=== PATIENT | female | born 1960 | race Caucasian/White ===

== ENCOUNTER 2016-04-27 08:17 | Outpatient (CLI) | payer OTHER | END 2016-04-27 08:18 | disposition home or self-care (01) | DX: R93.5 Abnormal findings on diagnostic imaging of other abdominal regions, including retroperitoneum (principal); Z98.890 Other specified postprocedural states ==

== ENCOUNTER 2016-05-06 16:38 | Outpatient (CLI) | payer OTHER ==
[2016-05-06] MEDS ORDERED: IOPAMIDOL-300 100 ML VIAL IVP ONE (18:07)
== END 2016-05-06 16:39 | disposition home or self-care (01) ==
DX: M77.8 Other enthesopathies, not elsewhere classified (principal)
CPT/HCPCS: 74177; Q9967

== ENCOUNTER 2016-07-05 10:00 | Outpatient (CLI) | payer OTHER | END 2016-07-05 10:01 | disposition home or self-care (01) | DX: Z12.31 Encounter for screening mammogram for malignant neoplasm of breast (principal) ==

== ENCOUNTER 2016-11-10 08:13 | Outpatient (CLI) | payer OTHER ==
[2016-11-10 13:09] LABS: BASOPHILS # (AUTO) 0.1 10^3/uL (0.0-0.1); BASOPHILS % (AUTO) 0.8 %; EOSINOPHILS # (AUTO) 0.1 10^3/uL (0.0-0.7); EOSINOPHILS % (AUTO) 1.8 %; HCT - HEMATOCRIT 40.9 % (37.0-47.0); HGB - HEMOGLOBIN 13.7 g/dL (12.0-16.0); LYMPHOCYTES # (AUTO) 2.3 10^3/uL (1.5-3.5); MEAN CORPUSCULAR HEMOGLOBIN 31.1 pg (27.0-31.0); MEAN CORPUSCULAR HGB CONC 33.6 g/dL (32.0-36.0); MEAN CORPUSCULAR VOLUME 92.6 fL (81.0-99.0); MEAN PLATELET VOLUME 8.9 fL (7.9-10.8); MONOCYTES # (AUTO) 0.5 10^3/uL (0.0-1.0); MONOCYTES % (AUTO) 7.1 %; NEUTROPHILS # (AUTO) 3.8 10^3/uL (1.5-6.6); NEUTROPHILS % (AUTO) 56.3 %; RED BLOOD COUNT 4.41 10^6/uL (4.20-5.40); RED CELL DISTRIBUTION WIDTH 13.9 % (12.0-15.0); UNCORRECTED WHITE BLOOD COUNT 6.8 x10^3/uL; WHITE BLOOD COUNT 6.8 x10^3/uL (4.8-10.8)
[2016-11-10 13:43] LABS: ALBUMIN/GLOBULIN RATIO 1.3 (1.0-2.2); BILIRUBIN,TOTAL 0.7 mg/dL (0.2-1.0); CALCIUM 8.5 mg/dL (8.5-10.3); CREATININE 0.8 mg/dL (0.4-1.0); TOTAL PROTEIN 6.9 g/dL (6.7-8.2)
[2016-11-10 13:55] LABS: THYROID STIMULATING HORMONE 0.11 uIU/mL (0.34-5.60)
== END 2016-11-10 08:14 | disposition home or self-care (01) ==
LOC: LAB.N 08:13
PROVIDERS: ATTEND Physician Assistant Medical
DX: E03.9 Hypothyroidism, unspecified (principal); E55.9 Vitamin D deficiency, unspecified; F41.8 Other specified anxiety disorders; Z72.89 Other problems related to lifestyle; Z11.59 Encounter for screening for other viral diseases; Z79.899 Other long term (current) drug therapy
CPT/HCPCS: 36415; 80053; 82306; 84439; 84443; 84481; 85025; 86803

== ENCOUNTER 2016-12-30 14:22 | Outpatient (CLI) | payer OTHER ==
[2016-12-30 14:19] LABS: THYROID STIMULATING HORMONE 0.08 uIU/mL (0.34-5.60)
== END 2016-12-30 14:23 | disposition home or self-care (01) ==
LOC: LAB.R 14:22
PROVIDERS: ATTEND Physician Assistant Medical
DX: E03.9 Hypothyroidism, unspecified (principal); Z79.899 Other long term (current) drug therapy
CPT/HCPCS: 84439; 84443; 84480; 84481

== ENCOUNTER 2017-01-03 09:00 | Outpatient (CLI) | payer OTHER | END 2017-01-03 09:01 | disposition home or self-care (01) | LOC: LAB.R 09:00 | PROVIDERS: ATTEND Physician Assistant Medical | DX: N30.00 Acute cystitis without hematuria (principal) | CPT/HCPCS: 87077; 87086 ==

== ENCOUNTER 2017-02-01 10:01 | Outpatient (CLI) | payer OTHER ==
--- NOTE | 2017-02-01 17:05 | XRAY Report ---
TWO VIEW LEFT CALCANEUS: 02/01/2017 CLINICAL INDICATION: Heel pain. Frontal and lateral views of the left calcaneus demonstrate no evidence of acute fracture. The joint spaces are preserved. A tiny plantar calcaneal spur is noted. IMPRESSION: TINY PLANTAR SPUR. NO EVIDENCE OF FRACTURE. JOB #: [id number] EXT JOB #:[id number]
== END 2017-02-01 10:02 | disposition home or self-care (01) ==
LOC: DI 10:01
PROVIDERS: ATTEND Physician Assistant Medical
DX: M77.32 Calcaneal spur, left foot (principal)

== ENCOUNTER 2017-02-07 08:23 | Outpatient (CLI) | payer OTHER ==
[2017-02-07 14:45] LABS: THYROID STIMULATING HORMONE < 0.08 uIU/mL (0.34-5.60)
== END 2017-02-07 08:24 | disposition home or self-care (01) ==
LOC: LAB.R 08:23
PROVIDERS: ATTEND Physician Assistant Medical
DX: E03.9 Hypothyroidism, unspecified (principal); Z79.899 Other long term (current) drug therapy
CPT/HCPCS: 84439; 84443; 84481

== ENCOUNTER 2017-02-16 16:44 | Outpatient (CLI) | payer OTHER | END 2017-02-16 16:45 | disposition home or self-care (01) | LOC: LAB.R 16:44 | PROVIDERS: ATTEND Physician Assistant Medical | DX: N30.00 Acute cystitis without hematuria (principal) | CPT/HCPCS: 87077; 87086 ==

== ENCOUNTER 2017-03-01 14:35 | Outpatient (CLI) | payer OTHER ==
[2017-03-01 13:53] LABS: RAPID STREP SCREEN REAGENT QC YELLOW (YELLOW)
== END 2017-03-01 14:36 | disposition home or self-care (01) ==
LOC: LAB.R 14:35
PROVIDERS: ATTEND Nurse Practitioner Primary Care
DX: J02.9 Acute pharyngitis, unspecified (principal)
CPT/HCPCS: 87070; 87430

== ENCOUNTER 2017-04-26 08:16 | Outpatient (CLI) | payer OTHER ==
[2017-04-26 14:01] LABS: THYROID STIMULATING HORMONE 0.85 uIU/mL (0.34-5.60)
[2017-04-26 14:03] LABS: FREE T4 (FREE THYROXINE) 0.88 ng/dL (0.58-1.64)
== END 2017-04-26 08:17 | disposition home or self-care (01) ==
LOC: LAB.R 08:16
PROVIDERS: ATTEND Physician Assistant Medical
DX: E03.9 Hypothyroidism, unspecified (principal); Z79.899 Other long term (current) drug therapy
CPT/HCPCS: 84439; 84443; 84481

== ENCOUNTER 2017-06-07 09:42 | Outpatient (CLI) | payer OTHER ==
--- NOTE | 2017-06-07 16:07 | MRI Report ---
EXAM: LEFT MIDFOOT MRI WITHOUT CONTRAST EXAM DATE: 06/07/2017 10:15 AM. CLINICAL HISTORY: Injury left calcaneus with no impingement. COMPARISON: Radiographs 02/01/2017. TECHNIQUE: Multiplanar, multisequence T1-weighted and fluid-sensitive sequences of the midfoot withou t contrast. Other: None. FINDINGS: Bones and articular surfaces: No significant joint effusion. No talar dome osteochondral lesion. No s ignificant articular cartilage defects. Trace amount of marrow edema at the posterior plantar aspect of the calcaneus at the plantar fascia attachment. Musculotendinous structures: The Achilles tendon appears intact. There is thickening and small amount of patchy edema within the proximal central band of the plantar fascia. Trace fluid associated with the tibialis posterior and flexor digitorum longus tendons. Remaining anterior, posterior and postero lateral ankle tendons appear normal. No muscle edema, atrophy or fatty replacement within the field-o f-view. Ligaments: The anterior and posterior talofibular, calcaneofibular and deltoid ligaments appear intac t. Normal signal within the tarsal sinus. IMPRESSION: 1. Moderate plantar fasciitis. 2. Trace tibialis posterior and flexor digitorum longus tenosynovitis. [facility] MUSCULOSKELET[facility] RADIOLOGY SECTION Referring Provider Line: [phone] SITE ID: [id number]
== END 2017-06-07 09:43 | disposition home or self-care (01) ==
LOC: DI 09:42
PROVIDERS: ATTEND Podiatrist
DX: S99.922A Unspecified injury of left foot, initial encounter (principal); M72.2 Plantar fascial fibromatosis; M65.872 Other synovitis and tenosynovitis, left ankle and foot

== ENCOUNTER 2017-07-05 10:03 | Outpatient (CLI) | payer OTHER ==
--- NOTE | 2017-07-06 15:00 | Mammography Report ---
DIGITAL SCREENING MAMMOGRAM: CLINICAL INDICATION: A 56-year-old for screening. COMPARISON: 06/2016, 04/2014, 08/2011, 08/2010, 06/2009. TECHNIQUE: Routine CC and MLO projections and bilateral laterally exaggerated craniocaudal views were obtained of the breasts. FINDINGS: Parenchymal tissue within both breasts is heterogeneously dense, which may lower the sensitivity of mammography; however, there are no dominant masses, suspicious microcalcifications, or secondary signs of malignancy. In comparison to the previous studies, there are no significant changes. ASSESSMENT: NO MAMMOGRAPHIC EVIDENCE OF MALIGNANCY. NO SIGNIFICANT INTERVAL CHANGES. RECOMMENDATION: Screening mammography is recommended annually. BIRADS CATEGORY 1 - NEGATIVE. STANDARD QUALIFYING STATEMENTS: 1. This examination was reviewed with the aid of Computed-Aided Detection (CAD) . 2. A negative or benign imaging report should not delay biopsy if clinically suspicious findings are present. Consider surgical consultation if warranted. More than 5 % of cancers are not identified by imaging. 3. Dense breasts may obscure an underlying neoplasm. TD: 07/06/2017 15:00 VALERIY
== END 2017-07-05 10:04 | disposition home or self-care (01) ==
LOC: DI.N 10:03
PROVIDERS: ATTEND Physician Assistant Medical
DX: Z12.31 Encounter for screening mammogram for malignant neoplasm of breast (principal)
CPT/HCPCS: 77067

== ENCOUNTER 2018-02-09 08:00 | Outpatient (CLI) | payer OTHER ==
[2018-02-09 11:03] LABS: BASOPHILS % (AUTO) 0.2 %; EOSINOPHILS % (AUTO) 0.3 %; HGB - HEMOGLOBIN 12.8 g/dL (12.0-16.0); LYMPHOCYTES # (AUTO) 2.1 10^3/uL (1.5-3.5); LYMPHOCYTES % (AUTO) 16.9 %; MEAN CORPUSCULAR HEMOGLOBIN 31.1 pg (27.0-31.0); MEAN CORPUSCULAR HGB CONC 33.6 g/dL (32.0-36.0); MEAN CORPUSCULAR VOLUME 92.6 fL (81.0-99.0); MEAN PLATELET VOLUME 7.9 fL (7.9-10.8); MONOCYTES # (AUTO) 1.9 10^3/uL (0.0-1.0); MONOCYTES % (AUTO) 14.9 %; NEUTROPHILS # (AUTO) 8.6 10^3/uL (1.5-6.6); NEUTROPHILS % (AUTO) 67.7 %; PLT - PLATELET COUNT 251 10^3/uL (130-450); RED BLOOD COUNT 4.12 10^6/uL (4.20-5.40); WHITE BLOOD COUNT 12.7 x10^3/uL (4.8-10.8)
[2018-02-09 11:18] LABS: ALBUMIN 3.9 g/dL (3.2-5.5); ALBUMIN/GLOBULIN RATIO 1.2 (1.0-2.2); BILIRUBIN,TOTAL 0.6 mg/dL (0.2-1.0); CALCIUM 8.7 mg/dL (8.5-10.3); CREATININE 0.8 mg/dL (0.4-1.0); TOTAL PROTEIN 7.2 g/dL (6.7-8.2)
[2018-02-09 11:26] LABS: RBC MORPHOLOGY (MULTIPLE) 1+ ANISOCYTOSIS (NORMAL)
== END 2018-02-09 23:59 | disposition home or self-care (01) ==
LOC: LAB.R 08:00
PROVIDERS: ATTEND Physician Assistant Medical
DX: R50.9 Fever, unspecified (principal)
CPT/HCPCS: 80053; 85025; 87275; 87276

== ENCOUNTER 2018-02-09 10:46 | Outpatient (CLI) | payer OTHER ==
--- NOTE | 2018-02-09 11:24 | XRAY Report ---
Reason: FEVER WITH CHILLS Procedure Date: 02/09/2018 Accession Number: [id number] / [id number] Procedure: XR - Chest 2 View X-Ray CPT Code: 70201 FULL RESULT: EXAM: CHEST RADIOGRAPHY EXAM DATE: 02/09/2018 11:06 AM. CLINICAL HISTORY: Fever with chills. COMPARISON: None. TECHNIQUE: 2 views. FINDINGS: Lungs/Pleura: No focal opacities evident. No pleural effusion. No pneumothorax. Normal volumes. Mediastinum: Heart and mediastinal contours are unremarkable. Other: None. IMPRESSION: Normal 2-view chest radiography. [facility]
== END 2018-02-09 10:47 | disposition home or self-care (01) ==
LOC: DI 10:46
PROVIDERS: ATTEND Physician Assistant Medical
DX: R07.89 Other chest pain (principal); R50.9 Fever, unspecified; R06.09 Other forms of dyspnea
CPT/HCPCS: 71046; 80053; 85025; 87275; 87276

== ENCOUNTER 2018-04-19 08:00 | Outpatient (CLI) | payer OTHER ==
[2018-04-19 12:50] LABS: BASOPHILS % (AUTO) 0.6 %; EOSINOPHILS # (AUTO) 0.1 10^3/uL (0.0-0.7); EOSINOPHILS % (AUTO) 1.1 %; HGB - HEMOGLOBIN 13.8 g/dL (12.0-16.0); LYMPHOCYTES # (AUTO) 2.2 10^3/uL (1.5-3.5); LYMPHOCYTES % (AUTO) 27.9 %; MEAN CORPUSCULAR HEMOGLOBIN 31.8 pg (27.0-31.0); MEAN CORPUSCULAR HGB CONC 34.1 g/dL (32.0-36.0); MEAN CORPUSCULAR VOLUME 93.1 fL (81.0-99.0); MEAN PLATELET VOLUME 8.3 fL (7.9-10.8); MONOCYTES # (AUTO) 0.5 10^3/uL (0.0-1.0); MONOCYTES % (AUTO) 5.7 %; NEUTROPHILS # (AUTO) 5.1 10^3/uL (1.5-6.6); NEUTROPHILS % (AUTO) 64.7 %; PLT - PLATELET COUNT 313 10^3/uL (130-450); RED BLOOD COUNT 4.34 10^6/uL (4.20-5.40); RED CELL DISTRIBUTION WIDTH 14.5 % (12.0-15.0); WHITE BLOOD COUNT 7.9 x10^3/uL (4.8-10.8)
[2018-04-19 13:17] LABS: ALBUMIN/GLOBULIN RATIO 1.5 (1.0-2.2); ALKALINE PHOSPHATASE 79 IU/L (42-121); ALT ALANINE AMINOTRANSFERASE 15 IU/L (10-60); AST ASPARTATE AMINOTRANSFERASE 15 IU/L (10-42); BILIRUBIN,TOTAL 0.6 mg/dL (0.2-1.0); BUN - BLOOD UREA NITROGEN 13 mg/dL (6-20); CALCIUM 9.2 mg/dL (8.5-10.3); CARBON DIOXIDE - CO2 29 mmol/L (21-32); CHLORIDE 103 mmol/L (101-111); CHOL/HDL RATIO 2.5 (<4.4); CHOLESTEROL 182 mg/dL; CREATININE 0.7 mg/dL (0.4-1.0); GFR - MDRD 86 (>89); GLUCOSE 88 mg/dL (70-100); HDL CHOLESTEROL 73 mg/dL; LDL CHOLESTEROL,CALCULATED 93 mg/dL; LDL/HDL RATIO 1.3 (<4.4); SODIUM 140 mmol/L (135-145); TOTAL PROTEIN 6.6 g/dL (6.7-8.2); VLDL CHOLESTEROL 16 mg/dL
== END 2018-04-19 23:59 | disposition home or self-care (01) ==
LOC: LAB.N 08:00
PROVIDERS: ATTEND Physician Assistant Medical
DX: Z00.00 Encounter for general adult medical examination without abnormal findings (principal); E55.9 Vitamin D deficiency, unspecified; Z79.899 Other long term (current) drug therapy; E03.9 Hypothyroidism, unspecified
CPT/HCPCS: 36415; 80053; 80061; 82306; 83721; 84443; 85025

== ENCOUNTER 2018-05-08 07:50 | Outpatient (CLI) | payer OTHER | END 2018-05-08 23:59 | disposition home or self-care (01) | LOC: LAB.R 07:50 | PROVIDERS: ATTEND Physician Assistant Medical | DX: N30.00 Acute cystitis without hematuria (principal) | CPT/HCPCS: 87086; 87181 ==

== ENCOUNTER 2018-05-25 15:25 | Outpatient (CLI) | payer OTHER | END 2018-05-25 23:59 | disposition home or self-care (01) | LOC: LAB.R 15:25 | PROVIDERS: ATTEND Family Medicine | DX: N30.00 Acute cystitis without hematuria (principal) | CPT/HCPCS: 87086; 87181 ==

== ENCOUNTER 2018-06-21 11:30 | Outpatient (CLI) | payer OTHER | END 2018-06-21 23:59 | disposition home or self-care (01) | LOC: LAB.WCP 11:30 | PROVIDERS: ATTEND Family Medicine | DX: N30.00 Acute cystitis without hematuria (principal) | CPT/HCPCS: 87086 ==

== ENCOUNTER 2018-12-13 00:55 | Emergency (ER) | payer OTHER ==
--- NOTE | 2018-12-13 01:15 | ED Physician Documentation ---
History of Present Illness - Stated complaint Stated Complaint: CANNOT URINATE/POST SURGERY - Chief complaint Chief Complaint: General - History obtained from History obtained from: Patient - History of Present Illness Timing: Today, How many hours ago (7) Severity Comments: severe suprapubic discomfort Quality: fullness Radiates to: none Improved by: nothing Worsened by: nothing Associated symptoms: denies nausea, vomiting, diarrhea, constipation or fever. - Treatment prior to arrival Treatment prior to arrival: none - Additonal information Additional information: 58 y/o F with hx of bladder incontinence s/p multiple surgeries including a mesh which was removed today and replaced with a sling. She was able to urinate without a fernandez shortly after the surgery but then went home and had abdominal fullness and was unable to urinate since getting up at 5pm. Denies hematuria or dysuria. Review of Systems Ten Systems: 10 systems reviewed and negative Constitutional: denies: Fever Cardiac: reports: Reviewed and negative Respiratory: reports: Reviewed and negative GI: reports: Abdominal Pain. denies: Nausea, Vomiting : reports: Unable to Void. 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, Other - Present Medications Home Medications: Ambulatory Orders Medication Instructions Recorded Confirmed Estradiol/Norethindrone Acet 1 tab PO DAILY 07/17/14 07/17/14 [Estradiol-Noreth 0.5-0.1 mg Tb] Levothyroxine [Synthroid] 1 tab PO DAILY 07/17/14 07/17/14 Liothyronine [Cytomel] 2 tab PO DAILY 07/17/14 07/17/14 buPROPion [Wellbutrin Sr] 1 tab PO DAILY 07/17/14 07/17/14 busPIRone [Buspar] 1 tab PO DAILY 07/17/14 07/17/14 Cholecalciferol (Vitamin D3) 1 each PO DAILY 07/18/14 07/18/14 [Vitamin D] Fluticasone [Flonase] 2 sprays WILEY DAILY 07/18/14 07/18/14 Phenylephrine HCl/Acetaminophn 1 cap PO DAILY PRN 07/18/14 07/18/14 [Daytime Sinus Softgel] - Allergies Allergies/Adverse Reactions: Allergies Allergy/AdvReac Type Severity Reaction Status Date / Time acetaminophen [From Percocet] Allergy Hives Verified 12/13/18 01:06 codeine Allergy Hives Verified 12/13/18 01:06 oxycodone HCl * Allergy Hives Verified 12/13/18 01:06 [From Percocet] - Social History Smoking Status: Unknown if ever smoked PD ED PE NORMAL - Vitals Vital signs reviewed: Yes - General General: Alert and oriented X 3, No acute distress, Well developed/nourished - HEENT HEENT: Atraumatic - Neck Neck: Supple, no meningeal sign - Cardiac Cardiac: RRR, No murmur, No gallop - Respiratory Respiratory: No respiratory distress, Clear bilaterally - Female Female : Deferred - Rectal Rectal: Deferred - Derm Derm: Normal color, Warm and dry, No rash - Neuro Neuro: Alert and oriented X 3 Eye Opening: Spontaneous Motor: Obeys Commands Verbal: Oriented GCS Score: 15 - Psych Psych: Normal mood, Normal affect PD ED PE EXPANDED - Abdomen Abdomen: Distended (suprapubic), Tender to palpation (suprapubic), Suprapubic Results - Vitals Vitals: Vital Signs - 24 hr 12/13/18 01:04 Temperature 36.8 C Heart Rate 88 Respiratory 17 Rate Blood Pressure 148/73 H O2 Saturation 97 Oxygen O2 Source Room air - Labs Labs: Laboratory Tests 12/13/18 01:30 Urine Color YELLOW Urine Clarity CLEAR Urine pH 6.0 Ur Specific [place] <=1.005 Urine Protein NEGATIVE Urine Glucose (UA) NEGATIVE Urine Ketones NEGATIVE Urine Occult Blood LARGE H Urine Nitrite NEGATIVE Urine Bilirubin NEGATIVE Urine Urobilinogen 0.2 (NORMAL) Ur Leukocyte Esterase NEGATIVE Urine RBC 0-5 Urine WBC 0-3 Ur Squamous Epith Cells RARE Squamous Urine Bacteria Few Urine Culture Comments NOT INDICATED PD MEDICAL DECISION MAKING - ED course Complexity details: reviewed results, re-evaluated patient, considered differential, d/w patient, d/w family ED course: ddx- acute urinary retention, UTI, renal failure 58 y/o F in urinary retention for several hours after bladder surgery for sling placement today for hx of incontinence. UA neg for UTI. S/p fernandez placement drained > 600cc of urine. Pt is no asymptomatic and stable for discharge with Urology f/u. Departure - Departure Disposition: 01 Home, Self Care Clinical Impression: Acute urinary retention Condition: Stable Record reviewed to determine appropriate education?: Yes Instructions: ED Retention Urinary Female, ED Catheter Care Fernandez Follow-Up: your, urologist [Other] Comments: Your urine was negative for infection. You had a fernandez catheter placed for urinary retention, you did have some blood in your urine that was probably from surgery and may contribute to your inability to urinate Call your urologist to discuss a plan for fernandez catheter removal and return to the ED if you have recurrence of urinary retention.
[2018-12-13 01:36] LABS: BILIRUBIN,URINE NEGATIVE (NEGATIVE); GLUCOSE, URINE (UA) NEGATIVE (NEGATIVE); KETONES,URINE (UA) NEGATIVE (NEGATIVE); LEUKOCYTE ESTERASE, URINE NEGATIVE (NEGATIVE); NITRITE,URINE NEGATIVE (NEGATIVE); OCCULT BLOOD,URINE LARGE (NEGATIVE); PROTEIN,URINE NEGATIVE (NEGATIVE); UROBILINOGEN,URINE 0.2 (NORMAL) E.U./dL (NORMAL)
[2018-12-13 01:37] LABS: CLARITY,URINE CLEAR (CLEAR)
[2018-12-13 01:46] LABS: BACTERIA,URINE Few /HPF (None Seen); RBC,URINE 0-5 /HPF (0-5); SQUAMOUS EPITHELIAL CELL,UR RARE Squamous (<= Few)
[2018-12-13 02:16] VITALS: BP 118/64
== END 2018-12-13 02:22 | disposition home or self-care (01) ==
LOC: ED 00:55
DX: R33.9 Retention of urine, unspecified (principal)
CPT/HCPCS: 81001; 87086; 99283

== ENCOUNTER 2018-12-22 18:31 | Emergency (ER) | payer OTHER ==
[2018-12-22 19:29] LABS: BILIRUBIN,URINE NEGATIVE (NEGATIVE); GLUCOSE, URINE (UA) 100 mg/dL (NEGATIVE); KETONES,URINE (UA) NEGATIVE (NEGATIVE); OCCULT BLOOD,URINE NEGATIVE (NEGATIVE); PH,URINE 6.5 PH (5.0-7.5)
--- NOTE | 2018-12-22 19:32 | ED Physician Documentation ---
History of Present Illness - Stated complaint Stated Complaint: UNABLE TO URINATE - Chief complaint Chief Complaint: Abd Pain - History obtained from History obtained from: Patient - History of Present Illness Timing: Today Pain level max: 8 Pain level now: 8 - Additonal information Additional information: Patient had a recent bladder sling placed. She had difficulty urinating after surgery, was seen here approximately 9 days ago and a catheter was placed. This catheter was removed and she is having difficulty urinating again today. Feels the urge to urinate but cannot. No fevers. Nothing makes it better or worse. She states she was treated for UTI last time. 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, Other - Present Medications Home Medications: Ambulatory Orders Medication Instructions Recorded Confirmed Estradiol/Norethindrone Acet 1 tab PO DAILY 07/17/14 07/17/14 [Estradiol-Noreth 0.5-0.1 mg Tb] Levothyroxine [Synthroid] 1 tab PO DAILY 07/17/14 07/17/14 Liothyronine [Cytomel] 2 tab PO DAILY 07/17/14 07/17/14 buPROPion [Wellbutrin Sr] 1 tab PO DAILY 07/17/14 07/17/14 busPIRone [Buspar] 1 tab PO DAILY 07/17/14 07/17/14 Cholecalciferol (Vitamin D3) 1 each PO DAILY 07/18/14 07/18/14 [Vitamin D] Fluticasone [Flonase] 2 sprays WILEY DAILY 07/18/14 07/18/14 Phenylephrine HCl/Acetaminophn 1 cap PO DAILY PRN 07/18/14 07/18/14 [Daytime Sinus Softgel] - Allergies Allergies/Adverse Reactions: Allergies Allergy/AdvReac Type Severity Reaction Status Date / Time acetaminophen [From Percocet] Allergy Hives Verified 12/22/18 18:51 codeine Allergy Hives Verified 12/22/18 18:51 oxycodone HCl * Allergy Hives Verified 12/22/18 18:51 [From Percocet] - Social History Does the pt smoke?: No Smoking Status: Unknown if ever smoked Does the pt drink ETOH?: No Does the pt have substance abuse?: No - Immunizations Immunizations are current?: Yes - POLST Patient has POLST: No PD ED PE NORMAL - Vitals Vital signs reviewed: Yes - General General: Alert and oriented X 3, Other (appears uncomfortable) - HEENT HEENT: PERRL - Neck Neck: Supple, no meningeal sign - Cardiac Cardiac: RRR - Respiratory Respiratory: Clear bilaterally - Abdomen Abdomen: Soft, Non distended, Other (TTP suprapubic) - Derm Derm: Warm and dry - Neuro Neuro: Alert and oriented X 3 - Psych Psych: Normal mood, Normal affect Results - Vitals Vitals: Oxygen O2 Source Room air - Labs Labs: Laboratory Tests 12/22/18 19:10 Urine Color ORANGE Urine Clarity CLEAR Urine pH 6.5 Ur Specific [place] <=1.005 Urine Protein Urine Glucose (UA) 100 H Urine Ketones NEGATIVE Urine Occult Blood NEGATIVE Urine Nitrite Urine Bilirubin NEGATIVE Urine Urobilinogen Ur Leukocyte Esterase Urine RBC None Seen Urine WBC 0-3 Ur Squamous Epith Cells RARE Squamous Urine Bacteria None Seen Ur Microscopic Review INDICATED Urine Culture Comments NOT INDICATED PD MEDICAL DECISION MAKING - ED course Complexity details: reviewed old records, reviewed results, re-evaluated bao ent, considered differential, d/w patient ED course: Patient with acute urinary retention. Bladder was drained. No UTI. Will leave the catheter in place and have her follow-up with her customer expert/urologist. Patient counseled regarding signs and symptoms for which I believe and urgent re-evaluation would be necessary. Patient with good understanding of and agreement to plan and is comfortable going home at this time This document was made in part using voice recognition software. While efforts are made to proofread this document, sound alike and grammatical errors may occur. Departure - Departure Disposition: 01 Home, Self Care Clinical Impression: Acute urinary retention Condition: Good Instructions: ED Catheter Care [place] Follow-Up: Nuris Dolan PA [Primary Care Provider] - Within 1 week Comments: continue your medications at home. Return if you worsen. Keep the catheter in place until you see your doctor. Discharge Date/Time: 12/22/18 21:15
[2018-12-22 19:44] LABS: CLARITY,URINE CLEAR (CLEAR)
[2018-12-22 19:45] LABS: BACTERIA,URINE None Seen /HPF (None Seen); RBC,URINE None Seen /HPF (0-5); SQUAMOUS EPITHELIAL CELL,UR RARE Squamous (<= Few)
[2018-12-22 21:30] VITALS: BP 136/72
== END 2018-12-22 21:15 | disposition home or self-care (01) ==
LOC: ED 18:31
DX: R33.9 Retention of urine, unspecified (principal); Z98.890 Other specified postprocedural states
CPT/HCPCS: 51702; 81001; 81003; 87086; 99283

== ENCOUNTER 2018-12-25 16:06 | Emergency (ER) | payer OTHER ==
[2018-12-25 16:22] VITALS: BP 125/63
--- NOTE | 2018-12-25 16:57 | ED Physician Documentation ---
History of Present Illness - Stated complaint Stated Complaint: FEMALE - CATHETER IRRITATION - Chief complaint Chief Complaint: General - History obtained from History obtained from: Patient - History of Present Illness Severity Comments: moderate Quality: spasming, dysuria Radiates to: none Improved by: nothing Worsened by: nothing Associated symptoms: denies fever, nausea, vomiting chills or back pain - Additonal information Additional information: 58 y/o F 2 weeks s/p bladder surgery, after surgery developed urinary retention and required a catheter placement in the ED for retention. She had relief with this but then developed UTI symptoms last week and was started on bactrim DS. She was feeling better, briefly developed some yeast infection itchiness but this resolved with some topical miconazole. She then had the catheter taken out but needed it back in again for retention. Now is having UTI symptoms, dysuria, bladder spasming, took azo just prior to arrival. Symptoms are severe spasming. 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, Indwelling catheter, Other HEENT: Chronic sinusitis, Other Psych: None Musculoskeletal: None Derm: None - Past Surgical History Past Surgical History: Yes 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, Other - Present Medications Home Medications: Ambulatory Orders Medication Instructions Recorded Confirmed Estradiol/Norethindrone Acet 1 tab PO DAILY 07/17/14 07/17/14 [Estradiol-Noreth 0.5-0.1 mg Tb] Levothyroxine [Synthroid] 1 tab PO DAILY 07/17/14 07/17/14 Liothyronine [Cytomel] 2 tab PO DAILY 07/17/14 07/17/14 buPROPion [Wellbutrin Sr] 1 tab PO DAILY 07/17/14 07/17/14 busPIRone [Buspar] 1 tab PO DAILY 07/17/14 07/17/14 Cholecalciferol (Vitamin D3) 1 each PO DAILY 07/18/14 07/18/14 [Vitamin D] Fluticasone [Flonase] 2 sprays WILEY DAILY 07/18/14 07/18/14 Phenylephrine HCl/Acetaminophn 1 cap PO DAILY PRN 07/18/14 07/18/14 [Daytime Sinus Softgel] Phenazopyridine HCl [Pyridium] 200 mg PO TID PRN #6 tablet 12/25/18 - Allergies Allergies/Adverse Reactions: Allergies Allergy/AdvReac Type Severity Reaction Status Date / Time acetaminophen [From Percocet] Allergy Hives Verified 12/25/18 16:22 codeine Allergy Hives Verified 12/25/18 16:22 oxycodone HCl * Allergy Hives Verified 12/25/18 16:22 [From Percocet] - Social History Does the pt smoke?: No Smoking Status: Never smoker Does the pt drink ETOH?: No Does the pt have substance abuse?: No - Immunizations Immunizations are current?: Yes - POLST Patient has POLST: No PD ED PE NORMAL - Vitals Vital signs reviewed: Yes - General General: Alert and oriented X 3, No acute distress, Well developed/nourished - HEENT HEENT: Atraumatic - Neck Neck: Supple, no meningeal sign - Cardiac Cardiac: RRR - Respiratory Respiratory: No respiratory distress - Abdomen Abdomen: Soft, Non tender, Non distended - Female Female : Deferred - Rectal Rectal: Deferred - Back Back: No CVA TTP - Derm Derm: Normal color, Warm and dry, No rash - Extremities Extremities: No edema - Neuro Neuro: Alert and oriented X 3 Eye Opening: Spontaneous Motor: Obeys Commands Verbal: Oriented GCS Score: 15 - Psych Psych: Normal mood, Normal affect Results - Vitals Vitals: Vital Signs - 24 hr 12/25/18 16:16 Temperature 37.0 C Heart Rate 70 Respiratory 15 Rate Blood Pressure 125/63 O2 Saturation 100 Oxygen O2 Source Room air - Labs Labs: Laboratory Tests 12/25/18 17:00 Urine Color YELLOW Urine Clarity CLOUDY Urine pH 6.0 Ur Specific [place] <=1.005 Urine Protein NEGATIVE Urine Glucose (UA) NEGATIVE Urine Ketones NEGATIVE Urine Occult Blood MODERATE H Urine Nitrite NEGATIVE Urine Bilirubin NEGATIVE Urine Urobilinogen 0.2 (NORMAL) Ur Leukocyte Esterase NEGATIVE Urine RBC 0-5 Urine WBC 0-3 Ur Squamous Epith Cells NONE SEEN Urine Bacteria None Seen Urine Culture Comments NOT INDICATED PD MEDICAL DECISION MAKING - ED course Complexity details: reviewed results, re-evaluated patient, considered differential, d/w patient ED course: ddx - bladder spasm, urinary retention, UTI, vaginitis, vaginosis 58 y/o F with hx and exam as documented. UA not suggestive of UTI but did have blood, which is not unexpected given recent bladder surgery and multiple fernandez placements and a prior UTI. Blood could be causing intermittent clotting causing her spasm symptoms. She is not however in urinary retention today. She no longer has symptoms of vaginitis. She is due to have the catheter removed as an outpatient and I agree with this plan of care at this time. She is stable for discharge with return precautions if she develops a fever or worsening pain. Departure - Departure Disposition: 01 Home, Self Care Clinical Impression: Bladder spasms Hematuria Qualifiers: Hematuria type: other microscopic Qualified Code(s): R31.29 - Other microscopic hematuria Condition: Stable Record reviewed to determine appropriate education?: Yes Follow-Up: your, doctor [Other] (for catheter removal) Prescriptions: Phenazopyridine HCl [Pyridium] 200 mg PO TID PRN #6 tablet PRN Reason: dysuria Comments: Your urine test today showed hematuria but no evidence of a UTI. You may be having some bladder spasms from clots developing in your catheter or just the catheter being present in your bladder. You can discontinue the Azo and try the pyridium instead for your symptoms. If you cannot urinate you should return to the ED. Discharge Date/Time: 12/25/18 18:15
[2018-12-25 17:20] LABS: BILIRUBIN,URINE NEGATIVE (NEGATIVE); GLUCOSE, URINE (UA) NEGATIVE (NEGATIVE); KETONES,URINE (UA) NEGATIVE (NEGATIVE); LEUKOCYTE ESTERASE, URINE NEGATIVE (NEGATIVE); NITRITE,URINE NEGATIVE (NEGATIVE); OCCULT BLOOD,URINE MODERATE (NEGATIVE); PROTEIN,URINE NEGATIVE (NEGATIVE); UROBILINOGEN,URINE 0.2 (NORMAL) E.U./dL (NORMAL)
[2018-12-25 17:24] LABS: CLARITY,URINE CLOUDY (CLEAR)
[2018-12-25 17:42] LABS: BACTERIA,URINE None Seen /HPF (None Seen); RBC,URINE 0-5 /HPF (0-5); SQUAMOUS EPITHELIAL CELL,UR NONE SEEN (<= Few)
== END 2018-12-25 18:15 | disposition home or self-care (01) ==
LOC: ED 16:06
DX: N32.89 Other specified disorders of bladder (principal); R31.29 Other microscopic hematuria; Z98.890 Other specified postprocedural states
CPT/HCPCS: 81001; 87086; 99283; 99284

== ENCOUNTER 2018-12-28 13:32 | Emergency (ER) | payer OTHER ==
--- NOTE | 2018-12-28 14:34 | ED Physician Documentation ---
PD HPI FEMALE - Stated complaint Stated Complaint: FEM - Chief complaint Chief Complaint: Abd Pain - History obtained from History obtained from: Patient - History of Present Illness Timing - onset: Today Timing - duration: Hours Timing - details: Gradual onset, Still present Associated symptoms: Pelvic pain, Other (cannot urinate) Contributing factors: Other (recent bladder surgery) Similar symptoms before: Diagnosis (urinary retention) Recently seen: Emergency Dept - Additional information Additional information: 58 y/o female with a history of recent bladder surgery has developed acute urinary retention and had a cath placed post operatively. She has had the cath in place for up to 5 days, she had had the cath removed twice previously both times with recurrent urinary retention developing after a good voiding trial. She has been in to her post op visit. She has now had the cath out since yesterday, she voided well yesterday and today she is not able to void and feels like she has pain in her rectum. She has been constipated and she is taking miralax. Review of Systems Constitutional: denies: Fever Eyes: denies: Decreased vision Ears: denies: Ear pain Nose: denies: Congestion Throat: denies: Sore throat Respiratory: denies: Cough GI: reports: Abdominal Pain, Nausea, Constipation. 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 : Incontinence, Other HEENT: Chronic sinusitis, Other Psych: None Musculoskeletal: None Derm: None - Past Surgical History Past Surgical History: Yes General: Other /JAVA LEAD ARCHITECT: Tubal ligation, Other - Present Medications Home Medications: Ambulatory Orders Medication Instructions Recorded Confirmed Estradiol/Norethindrone Acet 1 tab PO DAILY 07/17/14 07/17/14 [Estradiol-Noreth 0.5-0.1 mg Tb] Levothyroxine [Synthroid] 1 tab PO DAILY 07/17/14 07/17/14 Liothyronine [Cytomel] 2 tab PO DAILY 07/17/14 07/17/14 buPROPion [Wellbutrin Sr] 1 tab PO DAILY 07/17/14 07/17/14 busPIRone [Buspar] 1 tab PO DAILY 07/17/14 07/17/14 Cholecalciferol (Vitamin D3) 1 each PO DAILY 07/18/14 07/18/14 [Vitamin D] Fluticasone [Flonase] 2 sprays WILEY DAILY 07/18/14 07/18/14 Phenylephrine HCl/Acetaminophn 1 cap PO DAILY PRN 07/18/14 07/18/14 [Daytime Sinus Softgel] Phenazopyridine HCl [Pyridium] 200 mg PO TID PRN #6 tablet 12/25/18 - Allergies Allergies/Adverse Reactions: Allergies Allergy/AdvReac Type Severity Reaction Status Date / Time acetaminophen [From Percocet] Allergy Hives Verified 12/28/18 13:52 codeine Allergy Hives Verified 12/28/18 13:52 oxycodone HCl * Allergy Hives Verified 12/28/18 13:52 [From Percocet] - Social History Does the pt smoke?: No Smoking Status: Never smoker Does the pt drink ETOH?: No Does the pt have substance abuse?: No - Immunizations Immunizations are current?: Yes - POLST Patient has POLST: No PD ED PE NORMAL - Vitals Vital signs reviewed: Yes (hypertensive mild ) - General General: Alert and oriented X 3, Well developed/nourished, Other (appears to be in anxious pain ) - HEENT HEENT: Atraumatic, PERRL, EOMI - Respiratory Respiratory: No respiratory distress - Abdomen Abdomen: Soft, Other (The lower abdomen is distended tender and the bedside ultrasound shows it is full of urine and distented beyond normal. 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, No motor deficit, No sensory deficit, Normal speech Eye Opening: Spontaneous Motor: Obeys Commands Verbal: Oriented GCS Score: 15 - Psych Psych: Normal mood, Normal affect Results - Vitals Vitals: Vital Signs - 24 hr 12/28/18 12/28/18 13:41 14:25 Temperature 36.4 C L Heart Rate 92 99 Respiratory 18 16 Rate Blood Pressure 135/70 H 127/69 O2 Saturation 95 96 Oxygen O2 Source Room air - Labs Labs: Laboratory Tests 10/17/19 14:48 Urine Color ORANGE Urine Clarity CLEAR Urine pH 5.5 Ur Specific [place] 1.010 Urine Protein Urine Glucose (UA) 100 H Urine Ketones NEGATIVE Urine Occult Blood TRACE-LYSE Urine Nitrite Urine Bilirubin NEGATIVE Urine Urobilinogen Ur Leukocyte Esterase Ur Microscopic Review NOT INDICATED Urine Culture Comments NOT INDICATED PD MEDICAL DECISION MAKING - ED course Complexity details: reviewed old records, reviewed results, re-evaluated patient, considered differential, d/w patient ED course: 58-year-old female with a recent bladder procedure has had an issue with urinary retention she has had a catheter removed yesterday again and she is ended up with urinary retention again. I have recommended to the patient that she keep the catheter in place longer in order for the bladder to fully recover before attempting to remove it again. She will have an appointment with her surgeon in in 4 days. Departure - Departure Disposition: 01 Home, Self Care Clinical Impression: Acute urinary retention Condition: Stable Instructions: ED Retention Urinary Female Follow-Up: Nuris Dolan PA [Primary Care Provider] -
[2018-12-28 14:59] LABS: BILIRUBIN,URINE NEGATIVE (NEGATIVE); GLUCOSE, URINE (UA) 100 mg/dL (NEGATIVE); KETONES,URINE (UA) NEGATIVE (NEGATIVE); OCCULT BLOOD,URINE TRACE-LYSE (NEGATIVE); PH,URINE 5.5 PH (5.0-7.5)
[2018-12-28 15:02] LABS: CLARITY,URINE CLEAR (CLEAR)
[2018-12-28 16:26] VITALS: BP 115/71
== END 2018-12-28 16:37 | disposition home or self-care (01) ==
LOC: ED 13:32
DX: R33.9 Retention of urine, unspecified (principal); Z98.890 Other specified postprocedural states
CPT/HCPCS: 51702; 81001; 81003; 87086; 87181; 99283; 99284

== ENCOUNTER 2019-01-25 08:00 | Outpatient (CLI) | payer OTHER | END 2019-01-25 23:59 | disposition home or self-care (01) | LOC: LAB.R 08:00 | PROVIDERS: ATTEND Physician Assistant Medical | DX: N39.0 Urinary tract infection, site not specified (principal) | CPT/HCPCS: 87086; 87181 ==

== ENCOUNTER 2019-02-05 07:00 | Outpatient (CLI) | payer OTHER | END 2019-02-05 23:59 | disposition home or self-care (01) | LOC: LAB.WCP 07:00 | PROVIDERS: ATTEND Physician Assistant | DX: R32 Unspecified urinary incontinence (principal) | CPT/HCPCS: 87086 ==

== ENCOUNTER 2019-02-09 09:45 | Outpatient (CLI) | payer OTHER | END 2019-02-09 23:59 | disposition home or self-care (01) | LOC: LAB.R 09:45 | PROVIDERS: ATTEND Physician Assistant | DX: N39.0 Urinary tract infection, site not specified (principal) | CPT/HCPCS: 87086 ==

== ENCOUNTER 2019-02-14 16:00 | Outpatient (CLI) | payer OTHER | END 2019-02-14 23:59 | disposition home or self-care (01) | LOC: LAB.R 16:00 | PROVIDERS: ATTEND Physician Assistant | DX: N39.0 Urinary tract infection, site not specified (principal) | CPT/HCPCS: 87086 ==

== ENCOUNTER 2019-11-13 08:00 | Outpatient (CLI) | payer OTHER ==
[2019-11-13 19:00] LABS: BILIRUBIN,URINE NEGATIVE (NEGATIVE); GLUCOSE, URINE (UA) NEGATIVE (NEGATIVE); KETONES,URINE (UA) NEGATIVE (NEGATIVE); LEUKOCYTE ESTERASE, URINE TRACE (NEGATIVE); NITRITE,URINE NEGATIVE (NEGATIVE); OCCULT BLOOD,URINE NEGATIVE (NEGATIVE); PH,URINE 6.5 PH (5.0-7.5); PROTEIN,URINE NEGATIVE (NEGATIVE); UROBILINOGEN,URINE 0.2 (NORMAL) E.U./dL (NORMAL)
[2019-11-13 19:23] LABS: BACTERIA,URINE None Seen /HPF (None Seen); CLARITY,URINE CLEAR (CLEAR); RBC,URINE None Seen /HPF (0-5); SQUAMOUS EPITHELIAL CELL,UR MOD Squamous (<= Few)
== END 2019-11-13 23:59 | disposition home or self-care (01) ==
LOC: LAB.R 08:00
PROVIDERS: ATTEND Physician Assistant
DX: N39.0 Urinary tract infection, site not specified (principal)
CPT/HCPCS: 81001; 87086

== ENCOUNTER 2019-11-13 11:01 | Outpatient (CLI) | payer OTHER ==
[2019-11-13 18:32] LABS: BASOPHILS % (AUTO) 0.6 %; EOSINOPHILS # (AUTO) 0.1 10^3/uL (0.0-0.7); EOSINOPHILS % (AUTO) 1.1 %; HGB - HEMOGLOBIN 13.6 g/dL (12.0-16.0); LYMPHOCYTES # (AUTO) 2.4 10^3/uL (1.5-3.5); LYMPHOCYTES % (AUTO) 36.8 %; MEAN CORPUSCULAR HEMOGLOBIN 31.6 pg (27.0-31.0); MEAN CORPUSCULAR HGB CONC 32.7 g/dL (32.0-36.0); MEAN CORPUSCULAR VOLUME 96.7 fL (81.0-99.0); MEAN PLATELET VOLUME 10.1 fL (7.9-10.8); MONOCYTES # (AUTO) 0.6 10^3/uL (0.0-1.0); MONOCYTES % (AUTO) 8.7 %; NEUTROPHILS # (AUTO) 3.4 10^3/uL (1.5-6.6); NEUTROPHILS % (AUTO) 52.5 %; PLT - PLATELET COUNT 291 10^3/uL (130-450); RED CELL DISTRIBUTION WIDTH 14.1 % (12.0-15.0); WHITE BLOOD COUNT 6.5 x10^3/uL (4.8-10.8)
[2019-11-13 18:53] LABS: ALBUMIN 4.3 g/dL (3.2-5.5); ALBUMIN/GLOBULIN RATIO 1.5 (1.0-2.2); BILIRUBIN,TOTAL 0.6 mg/dL (0.2-1.0); CALCIUM 8.9 mg/dL (8.5-10.3); CREATININE 0.8 mg/dL (0.4-1.0); TOTAL PROTEIN 7.2 g/dL (6.7-8.2)
[2019-11-13 19:01] LABS: T4 (THYROXINE) 8.74 ug/dL (6.09-12.23)
[2019-11-13 19:05] LABS: FREE T3 3.93 pg/mL (2.5-3.9); THYROID STIMULATING HORMONE 0.18 uIU/mL (0.34-5.60)
== END 2019-11-13 23:59 | disposition home or self-care (01) ==
LOC: LAB.WCP 11:01
PROVIDERS: ATTEND Physician Assistant
DX: E03.9 Hypothyroidism, unspecified (principal); N39.0 Urinary tract infection, site not specified; Z79.899 Other long term (current) drug therapy
CPT/HCPCS: 36415; 80053; 84436; 84443; 84481; 85025

== ENCOUNTER → 2019-11-14 | Outpatient (CLI) | payer OTHER ==
--- NOTE | 2019-11-14 10:37 | XRAY Report ---
PROCEDURE: Lumbar Spine 2 View INDICATIONS: LUMBAR BACK PAIN WITH RADICULOPATHY TECHNIQUE: 3 views of the lumbar spine were acquired. COMPARISON: None. FINDINGS: Bones: 5 [id number] vertebrae are present. There is trace L1-L2, L2-L3 and L3-L4 retrolisthesi s. There is approximately 10 degrees of convex left thoracal lumbar spine curvature. No vertebral bod y compression fractures. No suspicious bony lesions. Moderate L1-L2 and L2-L3 degenerative disc dise ase. Mild L3-L4, L4-L5 and L5-S1 degenerative disc Soft tissues: Overlying bowel gas pattern is normal. No suspicious soft tissue calcifications. IMPRESSION: 1. Multilevel degenerative disease. 2. No fracture. No acute osseous lesion. If there is continued clinical concern for pathology, then M RI should be considered for further evaluation. Reviewed by: Ebony Zaldivar MD, PhD on 11/14/2019 10:35 AM PDT Approved by: Ebony Zaldivar MD, PhD on 11/14/2019 10:35 AM PDT Station ID: [id number]
== END ==
LOC: DI.WCP 09:03
PROVIDERS: ATTEND Physician Assistant
DX: M43.16 Spondylolisthesis, lumbar region (principal); M51.36 Other intervertebral disc degeneration, lumbar region; M51.37 Other intervertebral disc degeneration, lumbosacral region
CPT/HCPCS: 72100

== ENCOUNTER 2020-06-20 14:08 | Outpatient (CLI) | payer OTHER | END 2020-06-20 14:09 | disposition home or self-care (01) | LOC: COV 14:08 | PROVIDERS: ATTEND Urology | DX: Z01.812 Encounter for preprocedural laboratory examination (principal); Z20.822 Contact with and (suspected) exposure to COVID-19 ==

== ENCOUNTER 2020-11-25 15:55 | Outpatient (CLI) | payer OTHER | END 2020-11-25 15:56 | disposition home or self-care (01) | LOC: COV 15:55 | PROVIDERS: ATTEND Urology | DX: Z01.812 Encounter for preprocedural laboratory examination (principal); N39.41 Urge incontinence; Z20.822 Contact with and (suspected) exposure to COVID-19 ==

== ENCOUNTER 2021-05-14 08:00 | Outpatient (CLI) | payer OTHER | END 2021-05-14 23:59 | disposition home or self-care (01) | LOC: LAB 08:00 | PROVIDERS: ATTEND Nurse Practitioner | DX: N39.0 Urinary tract infection, site not specified (principal) | CPT/HCPCS: 87086; 87181 ==

== ENCOUNTER 2021-12-03 08:00 | Outpatient (CLI) | payer OTHER | END 2021-12-03 23:59 | disposition home or self-care (01) | LOC: LAB.N 08:00 | PROVIDERS: ATTEND Nurse Practitioner | DX: R30.0 Dysuria (principal) | CPT/HCPCS: 87086 ==

== ENCOUNTER 2023-07-27 13:21 | Outpatient (CLI) | payer OTHER ==
--- NOTE | 2023-07-28 09:48 | Mammography Report ---
BILATERAL DIGITAL SCREENING MAMMOGRAM 3D/2D: 07/27/2023 CLINICAL: Routine screening. Comparison is made to exams dated: 07/05/2017 mammogram, 07/05/2016 mammogram, 04/16/2014 mammogram, and 09/03/2011 mammogram - [facility]. Both breasts are heterogeneously dense, which may obscure small masses (category c / 51-75% glandular tissue). No significant masses, calcifications, or other findings are seen in either breast. There has been no significant interval change. IMPRESSION: NEGATIVE There is no mammographic evidence of malignancy. A 1 year screening mammogram is recommended. Based on the Tyrer Cuzick model (a risk assessment model) the patient's lifetime risk is 9.0% and her 10 year risk is 4.2%. According to the ACR, ACS, and NCCN guidelines, an annual breast MRI exam antony g with mammogram is recommended if the patient's lifetime risk is 20% or greater. This exam was interpreted at Station ID: [id number]. NOTE: For mammograms, a report in lay terms will be sent to the patient. Approximately 15% of breast malignancies will not be visualized mammographically. In the management of a palpable breast mass, a negative mammogram must not discourage biopsy of a clinically suspicious lesion. Electronically Signed By: Gretchen Soto M.D., Ph.D. /precious:07/27/2023 13:50:13 letter sent: No_Letter ACR BI-RADS Category 1: Negative [id number] PARENCHYMAL PATTERN: (D) - The breast(s) demonstrate(s) heterogeneously dense fibroglandular lin pedersen. BI-RADS CATEGORY: (1) - 1 RECOMMENDATION: (ANNUAL) - Recommend routine annual screening mammography. [id number] 1 year screening LATERALITY: (B)
== END 2023-07-27 13:22 | disposition home or self-care (01) ==
LOC: DI.N 13:21
DX: Z12.31 Encounter for screening mammogram for malignant neoplasm of breast (principal); R92.333 Mammographic heterogeneous density, bilateral breasts